=== PATIENT | male | born 1970 | race Hispanic/Latino ===

== ENCOUNTER 2024-04-28 07:36 | Day surgery (SDC) | payer OTHER ==
[~2024-04-28] VITALS: Ht 165.1 cm; Wt 80.3 kg
[2024-04-28] VITALS (11 sets, daily range): BP systolic 92–116; BP diastolic 59–89; PULSE 63–77; RESP 15–22; TEMP 96.7–97.8
[~2024-04-28 07:36] MED LIST: AEC81 PO; AMLO-257 PO; ATOR40TA69 PO; AUD IH; CITA10TA89 PO; DAPA10TA PO; DOCU100T PO; ERGO500093 PO; FAMO20TA8 PO; FINE10TA PO; FLUT1BLS3 IH; GABA-529 PO; INDA2.5T5 PO; ISOS30TA11 PO; LUBI8CAP5 PO; METO-408 PO; SACU1TAB PO; SITA50TA PO; TORS100T16 PO; TRAZ150T79 PO
[2024-04-28] MEDS: 0.9%NACL 1000ML 1,000 ML IV ONE (08:31)
[2024-04-28] MEDS ORDERED: proPOFol 10 MG/ML 20ML VIAL IV ONE (10:16)
== END 2024-04-28 12:00 | disposition home or self-care (01) ==
LOC: ENDO 07:36 → DAH 07:36 → ENDO 12:00
PROVIDERS: ATTEND Internal Medicine Gastroenterology
DX: K92.1 Melena (principal); D12.3 Benign neoplasm of transverse colon; K29.50 Unspecified chronic gastritis without bleeding; K31.89 Other diseases of stomach and duodenum; K59.04 Chronic idiopathic constipation; I13.0 Hypertensive heart and chronic kidney disease with heart failure and stage 1 through stage 4 chronic kidney disease, or unspecified chronic kidney disease; I50.9 Heart failure, unspecified; E11.22 Type 2 diabetes mellitus with diabetic chronic kidney disease; N18.4 Chronic kidney disease, stage 4 (severe); D72.89 Other specified disorders of white blood cells; E78.5 Hyperlipidemia, unspecified; J44.9 Chronic obstructive pulmonary disease, unspecified; K21.9 Gastro-esophageal reflux disease without esophagitis; Z79.82 Long term (current) use of aspirin; Z79.899 Other long term (current) drug therapy
CPT/HCPCS: 43239; 45385; 82948; J2704; J7030; A4620; A7002; J3490